=== PATIENT | female | born 1985 | race Caucasian/White ===

== ENCOUNTER 2023-06-14 18:00 | Inpatient (IN) | payer BC ==
[2023-06-14] MEDS ORDERED: BETAMET ACET/BETAMET NA PH 30 MG/5 ML VIAL IM ONE (19:13)
[2023-06-14] MEDS ORDERED: AMPICILLIN - 2 GM in SODIUM CHLORIDE 100 ML IVPB ONE ×2 (19:14→20:30)
[2023-06-14] MEDS: DEXTROSE 5%-LACTATED RINGERS 1,000 ML IV SCH (20:25)
[2023-06-14] MEDS ORDERED: BETAMET ACET/BETAMET NA PH 30 MG/5 ML VIAL ONE (20:27)
[2023-06-14] MEDS ORDERED: AMPICILLIN SODIUM 2 GM VIAL ONE (20:27)
[2023-06-14 20:54] LABS: BASO % 0.9 % (0-2.0); EOS % 0.7 % (0-4.5); HEMATOCRIT 32.4 % (32.4-45.2); HEMOGLOBIN 11.5 GM/dL (10.7-15.3); LYMPH % 24.7 % (8-40); MCH 33.4 pg (25.7-33.7); MCHC 35.5 g/dl (32.0-36.0); MEAN CELL VOLUME 94.2 fl (80-96); MEAN PLT VOLUME 9.3 fl (7.5-11.1); MONO % 7.5 % (3.8-10.2); NEUT % 66.2 % (42.8-82.8); PLATELET COUNT 152 10^3/uL (134-434); RBC 3.44 M/mm3 (3.60-5.2); RDW 12.7 % (11.6-15.6); WHITE BLOOD COUNT 6.2 K/mm3 (4.0-10.0)
[2023-06-14 21:04] LABS: INR 0.92 (0.83-1.09); PROTHROMBIN TIME (PATIENT) 10.7 SEC (9.7-13.0)
[2023-06-14 21:07] LABS: ACTIVATED PTT 24.8 SECONDS (25.2-36.5); POTASSIUM 3.7 mmol/L (3.5-5.1)
[2023-06-14 21:09] LABS: BLOOD UREA NITROGEN 9.4 mg/dL (7-18); CALCIUM 8.8 mg/dL (8.5-10.1)
[2023-06-14 21:10] LABS: ALBUMIN 2.6 g/dl (3.4-5.0)
[2023-06-14 21:13] LABS: CREATININE 0.7 mg/dL (0.55-1.3)
[2023-06-14 21:14] LABS: BILIRUBIN,TOTAL 0.9 mg/dL (0.2-1); TOT PROT 5.8 g/dl (6.4-8.2)
[2023-06-14 21:16] VITALS: BMI 25.4
[2023-06-14 21:48] LABS: HEPATITIS B SURFACE AG MATERN NON-REACTIVE (NONREACTIVE); SYPHILIS W/ RPR CONF NON-REACTIVE (NONREACTIVE)
[2023-06-14 22:21] LABS: HIV INTERPRETATION NEGATIVE (NEGATIVE)
[2023-06-15] MEDS ORDERED: AMPICILLIN SODIUM 1 GM VIAL ONE ×6 (00:28→20:47)
[2023-06-15] MEDS: AMPICILLIN - 1 GM in SODIUM CHLORIDE 100 ML IVPB SCH ×6 (00:33→20:50)
[2023-06-15] MEDS ORDERED: PROMETHAZINE HCL 25 MG/1 ML VIAL IVPB ONE (01:00)
[2023-06-15] MEDS ORDERED: BUTORPHANOL TARTRATE 1 MG/ML VIAL IVPB ONE (01:00)
[2023-06-15] MEDS ORDERED: BUTORPHANOL TARTRATE 1 MG/ML VIAL ONE (01:11)
[2023-06-15] MEDS ORDERED: PROMETHAZINE HCL 25 MG/1 ML VIAL ONE (01:11)
[2023-06-15] MEDS ORDERED: BETAMET ACET/BETAMET NA PH 30 MG/5 ML VIAL ONE (08:24)
[2023-06-15] MEDS ORDERED: BETAMET ACET/BETAMET NA PH 30 MG/5 ML VIAL IM ONE (08:30)
[2023-06-15] MEDS: DEXTROSE 5%-LACTATED RINGERS 1,000 ML IV SCH ×2 (10:20→21:50)
[2023-06-15] MEDS ORDERED: OXYTOCIN 30 UNITS in 0.9% NS 30 UNIT/500 ML INFUS.BAG IVPB ONE (20:11)
[2023-06-15] MEDS: OXYTOCIN 30 UNITS in 0.9% NS 30 UNIT/500 ML INFUS.BAG IVPB SCH (20:15)
[2023-06-16] MEDS ORDERED: FENTANYL/BUPIVACAINE/NS/PF - PCEA - 50 ML DISP.SYRIN EP ONE ×3 (00:06→08:41)
[2023-06-16] MEDS: ELECTROLYTE-148 SOLN 1,000 ML IV SCH ×2 (00:15→04:35)
[2023-06-16] MEDS: FENTANYL/BUPIVACAINE/NS/PF - PCEA - 50 ML DISP.SYRIN EP SCH ×3 (00:45→08:46)
[2023-06-16] MEDS ORDERED: AMPICILLIN SODIUM 1 GM VIAL ONE ×3 (01:05→10:37)
[2023-06-16] MEDS: AMPICILLIN - 1 GM in SODIUM CHLORIDE 100 ML IVPB SCH ×4 (01:10→14:14)
[2023-06-16] MEDS ORDERED: NALOXONE HCL 0.4 MG/ML VIAL IVPUSH PRN (01:59)
[2023-06-16] MEDS ORDERED: BUPIVACAINE HCL/PF 0.25% (2.5MG/ML) 10 ML VIAL ONE (09:42)
[2023-06-16] MEDS ORDERED: SODIUM CHLORIDE 100 ML IVPB ONE (10:37)
[2023-06-16] MEDS ORDERED: OXYTOCIN 20 UNITS in 0.9% NS 20 UNIT/1,000 ML INFUS.BAG IV ONE ×2 (11:37→13:50)
[2023-06-16] MEDS ORDERED: LIDOCAINE HCL 1% PRESERVATIVE FREE - 30ML VIAL ONE (12:38)
[2023-06-16] MEDS: OXYTOCIN 20 UNITS in 0.9% NS 20 UNIT/1,000 ML INFUS.BAG IV SCH ×2 (12:49→13:45)
[2023-06-16] MEDS ORDERED: OXYTOCIN 10 UNITS/ML VIAL ONE (12:53)
[2023-06-16] MEDS ORDERED: MISOPROSTOL 200 MCG TABLET ONE (12:53)
[2023-06-16] MEDS: MISOPROSTOL 200 MCG TABLET PR SCH (13:00)
[2023-06-16] MEDS ORDERED: METHYLERGONOVINE MALEATE 0.2 MG/1 ML AMP IM ONE ×2 (13:15→13:35)
[2023-06-16] MEDS ORDERED: OXYTOCIN 10 UNIT/ML 10ML MDV IVPB ONE (13:30)
[2023-06-16 13:31] LABS: CORD BASE EXCESS -5.5 mmol/L (0-2); CORD HCO3 22.4 mmHg (20-29); CORD PCO2 51.9 mmHg (30-78); CORD pH 7.252 (7.14-7.44)
[2023-06-16 13:35] LABS: CORD BASE EXCESS -4.4 mmol/L (0-2); CORD HCO3 20.2 mmHg (20-29); CORD PCO2 36.1 mmHg (30-78); CORD pH 7.365 (7.14-7.44)
[2023-06-16] MEDS ORDERED: ACETAMINOPHEN 325 MG TABLET (FP) ONE (13:36)
[2023-06-16] MEDS ORDERED: BENZOCAINE 20% 57 GM BOTTLE TP PRN (13:51)
[2023-06-16] MEDS ORDERED: oxyCODONE HCL 5 MG TABLET PO PRN (13:51)
[2023-06-16] MEDS ORDERED: METHYLERGONOVINE MALEATE 0.2 MG/1 ML AMP IM PRN (13:51)
[2023-06-16] MEDS ORDERED: BENZOCAINE 28 GM HEMORRHOIDAL OINTMENT TP PRN (13:51)
[2023-06-16] MEDS ORDERED: WITCH HAZEL 50% (TUCKS) 40 PAD/JAR PAD TP PRN (13:51)
[2023-06-16] MEDS ORDERED: BISACODYL 10 MG SUPP.RECT RC PRN (13:51)
[2023-06-16] MEDS: ACETAMINOPHEN 325 MG TABLET (FP) PO PRN (14:15)
[2023-06-16] MEDS: IBUPROFEN 600 MG TABLET (FP) PO PRN (17:52)
[2023-06-16 20:58] VITALS: RESP 18
[2023-06-17] MEDS: IBUPROFEN 600 MG TABLET (FP) PO PRN ×4 (01:56→21:19)
[2023-06-17] MEDS: ELECTROLYTE-148 SOLN 1,000 ML IV SCH (07:47)
[2023-06-17] MEDS: DEXTROSE 5%-LACTATED RINGERS 1,000 ML IV SCH (07:48)
[2023-06-17] MEDS: OXYTOCIN 30 UNITS in 0.9% NS 30 UNIT/500 ML INFUS.BAG IVPB SCH (07:48)
[2023-06-17 08:12] LABS: BASO % 0.3 % (0-2.0); EOS % 0.2 % (0-4.5); HEMATOCRIT 22.4 % (32.4-45.2); HEMOGLOBIN 7.8 GM/dL (10.7-15.3); LYMPH % 17.2 % (8-40); MCH 33.8 pg (25.7-33.7); MCHC 34.8 g/dl (32.0-36.0); MEAN CELL VOLUME 97.3 fl (80-96); MEAN PLT VOLUME 9.4 fl (7.5-11.1); MONO % 7.8 % (3.8-10.2); NEUT % 74.5 % (42.8-82.8); PLATELET COUNT 142 10^3/uL (134-434); WHITE BLOOD COUNT 9.7 K/mm3 (4.0-10.0)
[2023-06-17] MEDS: MISOPROSTOL 200 MCG TABLET PR SCH ×2 (08:14→08:15)
[2023-06-17] MEDS: AMPICILLIN - 1 GM in SODIUM CHLORIDE 100 ML IVPB SCH (08:14)
[2023-06-17] MEDS: FENTANYL/BUPIVACAINE/NS/PF - PCEA - 50 ML DISP.SYRIN EP SCH (08:15)
[2023-06-17 11:02] LABS: POC NITRAZINE POS
[2023-06-17] MEDS: DOCUSATE SODIUM 100 MG CAPSULE (FP) PO SCH ×2 (11:06→21:21)
[2023-06-17] MEDS: FERROUS SO4 325 MG TABLET (FP) PO SCH ×2 (11:07→21:20)
[2023-06-17] MEDS: ACETAMINOPHEN 325 MG TABLET (FP) PO PRN (16:38)
[2023-06-17] MEDS ORDERED: SENNOSIDES/DOCUSATE COMBO (SENNA PLUS) TABLET (UD) PO PRN (22:00)
[2023-06-18] MEDS: IBUPROFEN 600 MG TABLET (FP) PO PRN (04:12)
[2023-06-18] MEDS: ACETAMINOPHEN 325 MG TABLET (FP) PO PRN (07:17)
[2023-06-18 07:20] LABS: BASO % 0.5 % (0-2.0); HEMATOCRIT 23.4 % (32.4-45.2); HEMOGLOBIN 8.2 GM/dL (10.7-15.3); LYMPH % 27.7 % (8-40); MCH 33.5 pg (25.7-33.7); MEAN CELL VOLUME 95.6 fl (80-96); MEAN PLT VOLUME 8.5 fl (7.5-11.1); MONO % 7.4 % (3.8-10.2); NEUT % 63.4 % (42.8-82.8); PLATELET COUNT 167 10^3/uL (134-434); RBC 2.45 M/mm3 (3.60-5.2); RDW 13.2 % (11.6-15.6)
[2023-06-18] MEDS: DOCUSATE SODIUM 100 MG CAPSULE (FP) PO SCH (09:03)
[2023-06-18] MEDS: FERROUS SO4 325 MG TABLET (FP) PO SCH (09:03)
[2023-06-18 12:17] VITALS: BP 114/67; PULSE 80; TEMP 97.7
== END 2023-06-18 12:40 | disposition home or self-care (01) | DRG 806 ==
LOC: JDEL 18:00 → JLDR 19:00 → J3W 06-16 16:00
PROVIDERS: ADMIT Obstetrics & Gynecology; ATTEND Obstetrics & Gynecology
PROC: 10E0XZZ Delivery of Products of Conception, External Approach (ICD-10-PCS; principal; 2023-06-16)
PROC: 0W8NXZZ Division of Female Perineum, External Approach (ICD-10-PCS; 2023-06-16)
DX: O42.013 Preterm premature rupture of membranes, onset of labor within 24 hours of rupture, third trimester (principal); O72.1 Other immediate postpartum hemorrhage; O34.03 Maternal care for unspecified congenital malformation of uterus, third trimester; Q51.4 Unicornate uterus; Z37.0 Single live birth; Z3A.35 35 weeks gestation of pregnancy
CPT/HCPCS: 36415; 36600; 76819-TC; 80053; 82803; 83986-QW; 85025; 85610; 85730; 86780; 86850; 86900; 86901; 87340; 87389; 96372

== ENCOUNTER 2024-12-16 15:00 | Inpatient (IN) | payer BC ==
[2024-12-16] MEDS: ELECTROLYTE-148 SOLN 500 ML IV ONE (15:45)
[2024-12-16] MEDS: ELECTROLYTE-148 SOLN 500 ML IV SCH (16:15)
[2024-12-16] MEDS ORDERED: NIFEdipine 10 MG CAPSULE (FP) ONE (16:16)
[2024-12-16] MEDS: NIFEdipine 10 MG CAPSULE (FP) PO ONE (16:20)
[2024-12-16] MEDS: LACTATED RINGERS SOLUTION 1,000 ML IV SCH ×2 (18:30→19:05)
[2024-12-16] MEDS ORDERED: MAGNESIUM 4GM/H20 - 4 GM/100 ML IVPB IVPB ONE (18:31)
[2024-12-16] MEDS: MAGNESIUM 4GM/H20 - 4 GM/100 ML IVPB IVPB ONE (18:35)
[2024-12-16 18:50] LABS: BASO % 0.4 % (0-2.0); EOS % 0.1 % (0-4.5); HEMATOCRIT 32.2 % (32.4-45.2); HEMOGLOBIN 11.4 GM/dL (10.7-15.3); LYMPH % 9.5 % (8-40); MCH 33.2 pg (25.7-33.7); MCHC 35.4 g/dl (32.0-36.0); MEAN CELL VOLUME 93.7 fl (80-96); MEAN PLT VOLUME 8.2 fl (7.5-11.1); MONO % 1.4 % (3.8-10.2); NEUT % 88.6 % (42.8-82.8); PLATELET COUNT 167 10^3/uL (134-434); RBC 3.43 M/mm3 (3.60-5.2); RDW 13.4 % (11.6-15.6); WHITE BLOOD COUNT 9.4 K/mm3 (4.0-10.0)
[2024-12-16 18:54] LABS: INR 0.95 (0.83-1.09); PROTHROMBIN TIME (PATIENT) 10.5 SEC (9.7-13.0)
[2024-12-16 18:58] LABS: ACTIVATED PTT 24.6 SECONDS (25.2-36.5)
[2024-12-16] MEDS ORDERED: MAGNESIUM SULFATE 20GM/500ML - 20 GM/500 ML INFUS.BAG IVPB SCH (19:00)
[2024-12-16] MEDS ORDERED: MAGNESIUM SULFATE 20GM/500ML - 20 GM/500 ML INFUS.BAG ONE (19:04)
[2024-12-16] MEDS: MAGNESIUM SULFATE 20GM/500ML - 20 GM/500 ML INFUS.BAG IVPB SCH (19:05)
[2024-12-16 19:09] VITALS: BMI 25.1
[2024-12-16 19:14] LABS: POTASSIUM 3.7 mmol/L (3.5-5.1)
[2024-12-16 19:15] LABS: CALCIUM 8.9 mg/dL (8.5-10.1)
[2024-12-16 19:18] LABS: CREATININE 0.6 mg/dL (0.55-1.3)
[2024-12-16] MEDS ORDERED: AMPICILLIN SODIUM 1 GM VIAL ONE (22:27)
[2024-12-16] MEDS: AMPICILLIN - 1 GM in SODIUM CHLORIDE 100 ML IVPB SCH (22:30)
[2024-12-17] MEDS ORDERED: ACETAMINOPHEN 325 MG TABLET (FP) ONE ×3 (01:49→16:34)
[2024-12-17] MEDS: ACETAMINOPHEN 325 MG TABLET (FP) PO ONE ×3 (01:50→16:38)
[2024-12-17] MEDS ORDERED: AMPICILLIN SODIUM 1 GM VIAL ONE ×4 (04:15→21:17)
[2024-12-17] MEDS ORDERED: MAGNESIUM SULFATE 20GM/500ML - 20 GM/500 ML INFUS.BAG ONE (12:47)
[2024-12-17] MEDS ORDERED: BETAMET ACET/BETAMET NA PH 30 MG/5 ML VIAL ONE (15:07)
[2024-12-17] MEDS: BETAMET ACET/BETAMET NA PH 30 MG/5 ML VIAL IM ONE (15:15)
[2024-12-18] MEDS ORDERED: ACETAMINOPHEN 325 MG TABLET (FP) ONE (03:14)
[2024-12-18] MEDS: ACETAMINOPHEN 325 MG TABLET (FP) PO ONE (03:18)
[2024-12-18] MEDS: CITRIC ACID/SODIUM CITRATE 30 ML UNIT-DOSE CUP PO ONE (04:22)
[2024-12-18 10:00] VITALS: BP 107/55; PULSE 93; RESP 18; TEMP 97.6
== END 2024-12-18 10:10 | disposition home or self-care (01) | DRG 833 ==
LOC: JDEL 15:00 → JLDR 18:06
PROVIDERS: ADMIT Obstetrics & Gynecology; ATTEND Obstetrics & Gynecology
DX: O60.03 Preterm labor without delivery, third trimester (principal); O99.820 Streptococcus B carrier state complicating pregnancy
CPT/HCPCS: 36415; 80048; 83735; 85025; 85610; 85730; 86780; 86850; 86900; 86901; 87077; 87086; 96372

== ENCOUNTER 2024-12-31 05:10 | Inpatient (IN) | payer BC ==
[2024-12-31] MEDS: ELECTROLYTE-148 SOLN 1,000 ML IV SCH (05:55)
[2024-12-31] MEDS ORDERED: AMPICILLIN SODIUM 2 GM VIAL ONE (05:57)
[2024-12-31] MEDS: AMPICILLIN - 2 GM in SODIUM CHLORIDE 100 ML IVPB ONE (06:28)
[2024-12-31 06:44] VITALS: BMI 25.0
[2024-12-31 07:01] LABS: ABSOLUTE IMMATURE GRANULOCYTES 0.04 x10^3/uL (0.0-0.031); BASOPHILS # 0.08 x10^3/uL (0.01-0.08); EOSINOPHIL % 1.3 % (0.7-5.8); HEMATOCRIT 32.8 % (34.1-44.9); HEMOGLOBIN 11.2 g/dL (11.2-15.7); MCHC 34.1 g/dl (32.2-35.5); MEAN CELL VOLUME 94.8 fl (79.4-94.8); MEAN PLT VOLUME 10.6 fl (9.4-12.3); MONOCYTE # 0.56 x10^3/uL (0.24-0.86); MONOCYTE % 7.1 % (4.7-12.5); PLATELET COUNT # 131 x10^3/uL (182-369)
[2024-12-31 07:23] LABS: INR 0.93 (0.83-1.09); PROTHROMBIN TIME (PATIENT) 10.2 SEC (9.7-13.0)
[2024-12-31 07:26] LABS: ACTIVATED PTT 23.7 SECONDS (25.2-36.5)
[2024-12-31 07:44] LABS: POTASSIUM 3.8 mmol/L (3.5-5.1)
[2024-12-31 07:45] LABS: BLOOD UREA NITROGEN 8.8 mg/dL (7-18); CALCIUM 8.5 mg/dL (8.5-10.1)
[2024-12-31 07:48] LABS: CREATININE 0.5 mg/dL (0.55-1.3)
[2024-12-31] MEDS ORDERED: FENTANYL/BUPIVACAINE/NS/PF - PCEA - 50 ML DISP.SYRIN EP ONE ×2 (08:23→11:17)
[2024-12-31] MEDS ORDERED: NALOXONE HCL 0.4 MG/ML VIAL IVPUSH PRN (08:31)
[2024-12-31] MEDS: FENTANYL/BUPIVACAINE/NS/PF - PCEA - 50 ML DISP.SYRIN EP SCH (08:48)
[2024-12-31] MEDS ORDERED: OXYTOCIN 20 UNITS in 0.9% NS 20 UNIT/1,000 ML INFUS.BAG IV ONE ×2 (09:06→17:00)
[2024-12-31] MEDS ORDERED: LIDOCAINE HCL 1% PRESERVATIVE FREE - 30ML VIAL ONE (09:06)
[2024-12-31] MEDS: AMPICILLIN - 1 GM in SODIUM CHLORIDE 100 ML IVPB SCH (10:15)
[2024-12-31] MEDS ORDERED: AMPICILLIN SODIUM 1 GM VIAL ONE (10:20)
[2024-12-31] MEDS: OXYTOCIN 20 UNITS in 0.9% NS 20 UNIT/1,000 ML INFUS.BAG IV SCH (13:00)
[2024-12-31] MEDS ORDERED: WITCH HAZEL 50% (TUCKS) 40 PAD/JAR PAD TP PRN (13:09)
[2024-12-31] MEDS ORDERED: IBUPROFEN 600 MG TABLET (FP) PO PRN (13:09)
[2024-12-31] MEDS ORDERED: oxyCODONE HCL 5 MG TABLET PO PRN (13:09)
[2024-12-31] MEDS ORDERED: BENZOCAINE 28 GM HEMORRHOIDAL OINTMENT TP PRN (13:09)
[2024-12-31] MEDS ORDERED: BENZOCAINE 20% 57 GM BOTTLE TP PRN (13:09)
[2024-12-31] MEDS ORDERED: BISACODYL 10 MG SUPP.RECT RC PRN (13:09)
[2024-12-31 13:33] LABS: CORD BASE EXCESS -1.9 mmol/L (0-2); CORD HCO3 23.5 mmHg (20-29); CORD PCO2 42.3 mmHg (30-78); CORD pH 7.362 (7.14-7.44)
[2024-12-31 13:34] LABS: CORD BASE EXCESS -4.4 mmol/L (0-2); CORD HCO3 23.5 mmHg (20-29); CORD PCO2 54.3 mmHg (30-78); CORD pH 7.254 (7.14-7.44)
[2024-12-31] MEDS: ACETAMINOPHEN 1000 MG/100 ML BAG IVPB ONE (13:50)
[2024-12-31] MEDS: METHYLERGONOVINE MALEATE 0.2 MG/1 ML AMP IM PRN (14:55)
[2024-12-31] MEDS: ACETAMINOPHEN 325 MG TABLET (FP) PO PRN (22:48)
[2025-01-01 07:33] LABS: ABSOLUTE IMMATURE GRANULOCYTES 0.05 x10^3/uL (0.0-0.031); BASOPHILS # 0.06 x10^3/uL (0.01-0.08); EOSINOPHIL % 0.8 % (0.7-5.8); EOSINOPHILS # 0.08 x10^3/uL (0.04-0.36); HEMOGLOBIN 10.7 g/dL (11.2-15.7); MCHC 32.4 g/dl (32.2-35.5); MEAN CELL VOLUME 97.9 fl (79.4-94.8); MEAN PLT VOLUME 11.3 fl (9.4-12.3); MONOCYTE % 6.8 % (4.7-12.5); PLATELET COUNT # 114 x10^3/uL (182-369); RDW 13.2 % (12.1-16.8)
[2025-01-01] MEDS: PRENATAL VITAMINS W/ FOLIC ACID TABLET (FP) PO SCH (10:17)
[2025-01-01] MEDS ORDERED: SENNOSIDES/DOCUSATE COMBO (SENNA PLUS) TABLET (UD) PO PRN (22:00)
[2025-01-02 08:22] VITALS: BP 105/70; PULSE 66; RESP 17; TEMP 98
== END 2025-01-02 13:05 | disposition home or self-care (01) | DRG 807 ==
LOC: JLDR 05:10 → J3W 17:20
PROVIDERS: ADMIT Obstetrics & Gynecology; ATTEND Obstetrics & Gynecology
PROC: 10E0XZZ Delivery of Products of Conception, External Approach (ICD-10-PCS; principal; 2024-12-31)
PROC: 0KQM0ZZ Repair Perineum Muscle, Open Approach (ICD-10-PCS; 2024-12-31)
PROC: 0W8NXZZ Division of Female Perineum, External Approach (ICD-10-PCS; 2024-12-31)
DX: O60.14X0 Preterm labor third trimester with preterm delivery third trimester, not applicable or unspecified (principal); Z37.0 Single live birth; O42.913 Preterm premature rupture of membranes, unspecified as to length of time between rupture and onset of labor, third trimester; O70.1 Second degree perineal laceration during delivery; Z3A.35 35 weeks gestation of pregnancy
CPT/HCPCS: 36415; 36600; 59409; 80048; 82803; 85025; 85610; 85730; 86780; 86850; 86900; 86901; J0131